=== PATIENT | male | born 1995 | race Caucasian/White ===

== ENCOUNTER 2016-12-14 17:48 | Emergency (ER) | payer BC ==
[~2016-12-14] VITALS: Ht 162.6 cm; Wt 67.0 kg
[~2016-12-14 17:48] MED LIST: AMO500 PO; NAPR-688 PO
[2016-12-14 18:18] VITALS: Ht 162.6 cm; Wt 67.0 kg
[2016-12-14] MEDS ORDERED: IBUP-1542 PO (19:31)
[2016-12-14] MEDS ORDERED: BACTDS PO (19:31)
[2016-12-14] MEDS ORDERED: CEPH-443 PO (19:31)
[2016-12-14 19:55] VITALS: PULSE 80
--- NOTE | 2016-12-14 20:37 | ERD ---
ER Documentation Chief Complaint Date/Time DATE: 12/14/16 TIME: 20:35 Chief Complaint r 1st toe redness and swelling x 1 month HPI Patient is a 20-year-old male with no medical problems who presents with a right first toe infection. The symptoms started 2 months ago but have been worse over the past 1 month. He had a piece of his toenail removed back in July for similar type problem. He has had no treatment as of yet. He has no fevers. Upon review of old medical records this is the patient's third visit to the ER since 2014. He does not know the name of his primary doctor. ROS All systems reviewed and are negative except as per history of present illness. Medications Home Meds Active Scripts Sulfamethoxazole-Trimethoprim* (Bactrim* DS) 800-160 Mg Tab, 1 TAB PO BID for 7 Days, TAB Prov:HENRIQUE DAILEY MD 12/14/16 Cephalexin* (Keflex*) 500 Mg Capsule, 500 MG PO QID for 7 Days, CAP Prov:HENRIQUE DAILEY MD 12/14/16 Ibuprofen* (Motrin*) 600 Mg Tab, 600 MG PO Q6H Y for PAIN AND OR ELEVATED TEMP, #30 TAB Prov:HENRIQUE DAILEY MD 12/14/16 Naproxen* (Naproxen*) 500 Mg Tablet, 500 MG PO BID Y for PAIN for 7 Days, TAB Prov:MANAGUELOD,RAMÓN P REED WORKER 07/09/16 Amoxicillin* (Amoxicillin*) 500 Mg Cap, 500 MG PO TID for 7 Days, CAP Prov:MANAGUELOD,RAMÓN P REED WORKER 07/09/16 Allergies Allergies: Coded Allergies: No Known Allergy (Unverified , 12/18/14) PMhx/Soc Medical and Surgical Hx: pt denies Medical Hx, pt denies Surgical Hx History of Surgery: No Anesthesia Reaction: No Hx Neurological Disorder: No Hx Respiratory Disorders: No Hx Cardiac Disorders: No Hx Psychiatric Problems: No Hx Miscellaneous Medical Probl: No Hx Alcohol Use: No Hx Substance Use: No Hx Tobacco Use: No Smoking Status: Never smoker FmHx Family History: No diabetes Physical Exam Vitals Vital Signs Date Time Temp Pulse Resp B/P Pulse Ox O2 Delivery O2 Flow Rate FiO2 12/14/16 19:55 80 99 Room Air 12/14/16 18:18 98.3 68 18 128/69 98 Physical Exam Const: No acute distress Head: Atraumatic Eyes: Normal Conjunctiva ENT: Normal External Ears, Nose and Mouth. Neck: Full range of motion..~ No meningismus. Resp: Clear to auscultation bilaterally Cardio: Regular rate and rhythm, no murmurs Abd: Soft, non tender, non distended. Normal bowel sounds Skin: Inflammation of the right first toe of the lateral portion where the toenail was removed previously, surrounding erythema without pus Back: No midline or flank tenderness Ext: No cyanosis, or edema Neur: Awake and alert Psych: Normal Mood and Affect Procedures/MDM Patient is a 20-year-old male presents with what appears to be inflammation and ingrown infected toenail. I believe the patient will require Bactrim and Keflex as well as ibuprofen for pain. I think salt soaks would be helpful. The patient will need to follow-up closely with Dr. Joshi from podiatry for further evaluation. The patient can return sooner for any worsening symptoms. Departure Diagnosis: Primary Impression: Toe infection Additional Impression: Pain of toe Laterality: right Qualified Code: M79.674 - Pain of toe of right foot Condition: Fair Patient Instructions: Ingrown Toenail, Infected (Abx Only) Referrals: YAYA JOSHI DPM Additional Instructions: Call your primary care doctor TOMORROW for an appointment during the next 1-2 days.See the doctor sooner or return here if your condition worsens before your appointment time. HENRIQUE DAILEY MD Dec 14, 2016 20:37
== END 2016-12-14 19:55 | disposition home or self-care (01) ==
LOC: FTE 17:48
DX: L08.89 Other specified local infections of the skin and subcutaneous tissue (principal); M79.674 Pain in right toe(s)
CPT/HCPCS: 99284

== ENCOUNTER 2016-12-18 15:48 | Emergency (ER) | payer BC ==
[~2016-12-18] VITALS: Wt 65.0 kg
[~2016-12-18 15:48] MED LIST changes: +BACTDS PO; +CEPH-443 PO; +IBUP-1542 PO
[2016-12-18] MEDS ORDERED: LIDOCAINE 1% (MDV) 20 ML INJ SC ONE (19:00)
--- NOTE | 2016-12-18 19:19 | ERD ---
ER Documentation Chief Complaint Date/Time DATE: 12/18/16 TIME: 19:05 Chief Complaint RIGHT GREAT TOE PAIN FROM A INGROWN NAIL FOR 2 MONTHS. NO FEVERS HPI 20-year-old male comes in with right medial great toe ingrown nail for the past 2 months. He denies that he has tried soaking it in Epsom salts, without any relief. No fevers or chills. Denies trauma. Denies history of diabetes mellitus per ROS All systems reviewed and are negative except as per history of present illness. Medications Home Meds Active Scripts Bacitracin* (Bacitracin Zinc Oint*) 28.35 Gm Oint, 1 APPLIC TOP BID, #1 TUB APPLI TO Prov:GUY MALONEY PA-C 12/18/16 Naproxen* (Naprosyn*) 500 Mg Tablet, 500 MG PO BID Y for PAIN AND/OR INFLAMMATION, #30 TAB Prov:GUY MALONEY PA-C 12/18/16 Cephalexin* (Keflex*) 500 Mg Capsule, 500 MG PO QID for 7 Days, CAP Prov:GUY MALONEY PA-C 12/18/16 Sulfamethoxazole-Trimethoprim* (Bactrim* DS) 800-160 Mg Tab, 1 TAB PO BID for 7 Days, TAB Prov:HENRIQUE DAILEY MD 12/14/16 Cephalexin* (Keflex*) 500 Mg Capsule, 500 MG PO QID for 7 Days, CAP Prov:HENRIQUE DAILEY MD 12/14/16 Ibuprofen* (Motrin*) 600 Mg Tab, 600 MG PO Q6H Y for PAIN AND OR ELEVATED TEMP, #30 TAB Prov:HENRIQUE DAILEY MD 12/14/16 Naproxen* (Naproxen*) 500 Mg Tablet, 500 MG PO BID Y for PAIN for 7 Days, TAB Prov:MANAGUELOD,ARMÓN P RADAR AIR TRAFFIC CONTROLLER 07/09/16 Amoxicillin* (Amoxicillin*) 500 Mg Cap, 500 MG PO TID for 7 Days, CAP Prov:MANAGUELOD,RAMÓN P [employer]AR [employer] TRAFFIC CONTROLLER 07/09/16 Allergies Allergies: Coded Allergies: No Known Allergy (Unverified , 12/18/14) PMhx/Soc History of Surgery: No Anesthesia Reaction: No Hx Neurological Disorder: No Hx Respiratory Disorders: No Hx Cardiac Disorders: No Hx Psychiatric Problems: No Hx Miscellaneous Medical Probl: No Hx Alcohol Use: No Hx Substance Use: No Hx Tobacco Use: No Physical Exam Vitals Vital Signs Date Time Temp Pulse Resp B/P Pulse Ox O2 Delivery O2 Flow Rate FiO2 12/18/16 15:56 98.5 98 20 135/88 98 Physical Exam General: Well-developed, well-nourished. The patient appears in no acute distress. HEENT: Head is normocephalic, atraumatic. No scleral icterus. Neck: Supple. Nontender. Lungs: Clear to auscultation. Normal air movement. Heart: Regular rate and rhythm. S1 and S2 are normal. No murmurs, gallops, or rubs. Abdomen: Nondistended. Extremities: No clubbing or cyanosis. Moving extremities x 4. No weakness. Neurologic: Alert and oriented 3. No focal deficits. Normal speech and gait. Skin: There is overgrowth of skin just lateral to the right great toe medial aspect. There is ingrown toenail as well. Results 24 hrs Current Medications Medications (Trade) Dose Ordered Sig/Enrrique Route PRN Reason Start Time Stop Time Status Last Admin Dose Admin Lidocaine (Xylocaine 1% (Mdv) 20 ml) 20 ml ONCE ONCE SC 12/18/16 19:00 12/18/16 19:01 DC Procedures/MDM Procedure: Ingrown Toenail removal: patient was verbally consented. Patient's right right great toe was prepped with Betadine. Digital block was done with lidocaine 1% without epinephrine, approximately 7 cc. Patient had good local anesthetic effect achieved. Foreceps were used to lift the nailbed, as well as scissors to cut just distal to the cuticle. Hemostat was used, was clamped onto the toenail, and flipped for removal. It was minor bleeding, hemostasis was achieved. Patient was neurovascularly intact postprocedure. Clean dressing was applied, patient was placed in a postop shoe. Departure Diagnosis: Primary Impression: Ingrowing nail, right great toe Condition: GUY Marcus PA-C Dec 18, 2016 19:19
[2016-12-18] MEDS ORDERED: NAPR-260 PO (19:23)
[2016-12-18] MEDS ORDERED: BAC30OI TOP (19:23)
[2016-12-18] MEDS ORDERED: CEPH-443 PO (19:23)
[2016-12-18 20:12] VITALS: BP 127/78; PULSE 67; RESP 20; TEMP 98.2
== END 2016-12-18 20:12 | disposition home or self-care (01) ==
LOC: FTE 15:48
DX: L60.0 Ingrowing nail (principal)
CPT/HCPCS: 11765; Z7502; Z7610

== ENCOUNTER 2017-05-10 00:33 | Emergency (ER) | payer BC ==
[~2017-05-10] VITALS: Wt 65.0 kg
[~2017-05-10 00:33] MED LIST changes: +BACI28.34 TOP; +NAPR-260 PO
[2017-05-10] MEDS ORDERED: HYDROmorphONE 1 MG/ML SYG IM STA (00:53)
--- NOTE | 2017-05-10 01:49 | ERD ---
ER Documentation Chief Complaint Date/Time DATE: 05/10/17 TIME: 01:49 Chief Complaint Left Shoulder pain possible dislocation HPI 21-year-old male with a history of multiple left shoulder dislocations presenting with left shoulder pain. He states he was getting out of bed and made a wrong move and felt his shoulder pop out of place. He denies any associated paresthesias. He complains of 10 out of 10 pain. No other symptoms. ROS All systems reviewed and are negative except as per history of present illness. Medications Home Meds Active Scripts Bacitracin* (Bacitracin Zinc Oint*) 28.35 Gm Oint, 1 APPLIC TOP BID, #1 TUB APPLI TO Prov:GUY MALONEY PA-C 12/18/16 Naproxen* (Naprosyn*) 500 Mg Tablet, 500 MG PO BID Y for PAIN AND/OR INFLAMMATION, #30 TAB Prov:GUY MALONEY PA-C 12/18/16 Cephalexin* (Keflex*) 500 Mg Capsule, 500 MG PO QID for 7 Days, CAP Prov:GUY MALONEY PA-C 12/18/16 Sulfamethoxazole-Trimethoprim* (Bactrim* DS) 800-160 Mg Tab, 1 TAB PO BID for 7 Days, TAB Prov:HENRIQUE DAILEY MD 12/14/16 Cephalexin* (Keflex*) 500 Mg Capsule, 500 MG PO QID for 7 Days, CAP Prov:HENRIQUE DAILEY MD 12/14/16 Ibuprofen* (Motrin*) 600 Mg Tab, 600 MG PO Q6H Y for PAIN AND OR ELEVATED TEMP, #30 TAB Prov:HENRIQUE DAILEY MD 12/14/16 Naproxen* (Naproxen*) 500 Mg Tablet, 500 MG PO BID Y for PAIN for 7 Days, TAB Prov:MANAGETHELOD,RAMÓN P MANAGER TECHNICAL TRAINING 07/09/16 Amoxicillin* (Amoxicillin*) 500 Mg Cap, 500 MG PO TID for 7 Days, CAP Prov:MANAGUELOD,RAMÓN P MANAGER TECHNICAL TRAINING 07/09/16 Allergies Allergies: Coded Allergies: No Known Allergy (Unverified , 12/18/14) PMhx/Soc Medical and Surgical Hx: pt denies Medical Hx, pt denies Surgical Hx History of Surgery: No Anesthesia Reaction: No Hx Neurological Disorder: No Hx Respiratory Disorders: No Hx Cardiac Disorders: No Hx Psychiatric Problems: No Hx Miscellaneous Medical Probl: Yes (Left shoulder dislocations) Hx Alcohol Use: No Hx Substance Use: No Hx Tobacco Use: No Smoking Status: Never smoker FmHx Family History: No diabetes Physical Exam Vitals Vital Signs Date Time Temp Pulse Resp B/P Pulse Ox O2 Delivery O2 Flow Rate FiO2 05/10/17 02:17 98.4 82 24 119/78 98 Room Air 05/10/17 00:36 98.4 85 24 125/70 98 Physical Exam Const: In distress secondary to pain, nontoxic Head: Atraumatic Resp: No respiratory distress Ext: No cyanosis, or edema. Left shoulder with sulcus sign noted. No deformities. 2+ distal radial pulses bilaterally. Sensations intact distally. Full range of motion at elbow and wrist. Neur: Awake and alert Psych: Normal Mood and Affect Results 24 hrs Current Medications Medications (Trade) Dose Ordered Sig/Enrrique Route PRN Reason Start Time Stop Time Status Last Admin Dose Admin Hydromorphone HCl (Dilaudid) 1 mg ONCE STAT IM 05/10/17 00:53 05/10/17 00:55 DC 05/10/17 01:00 Procedures/MDM Patient was given 1 dose of IM Dilaudid with good pain relief. Shoulder Reduction by me: Anesthesia: IM Dilaudid Location: Left shoulder Technique: Scapular manipulation, Results: Yazidism of normal anatomic positioning Compl: Neurovascularly intact post procedure. Sling Assessment: Neurovascularly intact post sling placement with good fit. Post-reduction X-ray Shoulder 3V Interpreted by me: Bones: No acute abnormalities Joints: Relocation of previously noted dislocation Foreign body: None I discussed the importance of follow-up with an orthopedist given his recurrent dislocations. Patient is agreeable to plan. Return precautions given Departure Diagnosis: Primary Impression: Recurrent dislocation, left shoulder Condition: Stable SAKSHI MCKINNEY MD May 10, 2017 01:49
[2017-05-10 02:17] VITALS: BP 119/78; PULSE 82; RESP 24; TEMP 98.4
--- NOTE | 2017-05-10 02:56 | RADRPT ---
PROCEDURE: X-ray left shoulder. CLINICAL INDICATION: The patient is status post reduction TECHNIQUE: 2 views left shoulder COMPARISON: Left shoulder plain film series dated 12/18/2014 FINDINGS: No acute fracture or dislocation. Soft tissues unremarkable. IMPRESSION: No acute fracture. RPTAT: [facility] Physician [facility] Date Time Electronically viewed and signed by Cristian Trimble Physician on 05/10/2017 02:55 RS/
== END 2017-05-10 02:18 | disposition home or self-care (01) ==
LOC: E/R 00:33
DX: S43.005A Unspecified dislocation of left shoulder joint, initial encounter (principal); X50.9XXA Other and unspecified overexertion or strenuous movements or postures, initial encounter; Y92.9 Unspecified place or not applicable
CPT/HCPCS: 23650; 73030; 96372; J1170; Z7502

== ENCOUNTER 2018-01-19 14:40 | Emergency (ER) | END 2018-01-19 17:10 | disposition home or self-care (01) ==

== ENCOUNTER 2018-01-20 21:47 | Emergency (ER) | END 2018-01-21 03:52 | disposition home or self-care (01) ==

== ENCOUNTER 2018-04-30 12:54 | Emergency (ER) | END 2018-04-30 16:18 | disposition home or self-care (01) ==

== ENCOUNTER 2018-06-21 00:53 | Emergency (ER) | END 2018-06-21 03:49 | disposition home or self-care (01) ==

== ENCOUNTER 2018-07-22 06:43 | Emergency (ER) | END 2018-07-22 09:50 | disposition home or self-care (01) ==

== ENCOUNTER 2018-11-24 11:29 | Emergency (ER) | payer SELFPAY ==
[~2018-11-24] VITALS: Ht 160 cm; Wt 57.8 kg
[2018-11-24 11:37] VITALS: Ht 160 cm; Wt 57.8 kg
[2018-11-24] MEDS ORDERED: PROPOFOL 200 MG INJ IV STA (11:56)
[2018-11-24] MEDS ORDERED: KETOROLAC 30 MG INJ IV STA (11:56)
[2018-11-24] MEDS ORDERED: IBUP-1542 PO (13:10)
[2018-11-24 13:26] VITALS: BP 108/50; PULSE 94; RESP 16
--- NOTE | 2018-11-24 14:12 | ERD ---
ER Documentation Chief Complaint Chief Complaint lt shoulder dislocation HPI Patient is a 22-year-old male with frequent shoulder dislocation who presents with a shoulder dislocation. He said that he woke up this morning and pushed to get himself out of bed and felt a pop in his left shoulder dislocated. He has 10 out of 10 pain. He has had no treatment as of yet. This is similar to the way it has happened in the past. ROS All systems reviewed and are negative except as per history of present illness. Medications Home Meds Active Scripts Ibuprofen* (Motrin*) 600 Mg Tab, 600 MG PO Q6H PRN for PAIN AND OR ELEVATED TEMP, #30 TAB Prov:HENRIQUE DAILEY MD 11/24/18 Allergies Allergies: Coded Allergies: No Known Allergy (Unverified , 01/19/18) PMhx/Soc History of Surgery: No Anesthesia Reaction: No Hx Neurological Disorder: No Hx Respiratory Disorders: No Hx Cardiac Disorders: No Hx Psychiatric Problems: No Hx Miscellaneous Medical Probl: Yes (Multiple left shoulder dislocations) Hx Alcohol Use: No Hx Substance Use: Yes (MARIJUANA) Hx Tobacco Use: No Smoking Status: Former smoker FmHx Family History: No diabetes Physical Exam Vitals Vital Signs Date Temp Pulse Resp B/P (MAP) Pulse Ox O2 O2 Flow FiO2 Time Delivery Rate 11/24/18 98.2 94 16 108/50 99 Room Air 13:26 (69) 11/24/18 4.0 12:35 11/24/18 98.0 71 18 117/73 97 11:37 (88) Physical Exam Const: No acute distress Head: Atraumatic Eyes: Normal Conjunctiva ENT: Normal External Ears, Nose and Mouth. Neck: Full range of motion. No meningismus. Resp: Clear to auscultation bilaterally Cardio: Regular rate and rhythm, no murmurs Abd: Soft, non tender, non distended. Normal bowel sounds Skin: No petechiae or rashes Back: No midline or flank tenderness Ext: Left shoulder dislocation Neur: Awake and alert Psych: Normal Mood and Affect Results 24 hrs Current Medications Medications Dose Sig/Enrrique Start Time Status Last (Trade) Ordered Route PRN Stop Time Admin Dose Reason Admin Ketorolac 30 mg ONCE STAT 11/24/18 DC 11/24/18 Tromethamine IV 11:56 12:10 (Toradol) 11/24/18 11:57 Propofol 200 mg ONCE STAT 11/24/18 DC 11/24/18 (Diprivan) IV 11:56 12:40 11/24/18 11:57 Procedures/MDM X-ray Shoulder 3V Interpreted by me: Bones: No fracture Joints: Anterior dislocation of the glenohumeral joint Foreign body: None Procedural Sedation: Pre-assessment performed. See preceding complete history and physical for details. Time out performed. See sedation documentation for details. Medication(s): Propofol Complications: No hypoxic or apneic events Recovered without incident. Greater than 15 minutes of face to face time included in sedation and recovery. Shoulder Reduction by me: Anesthesia: Propofol 140 mg IV Location: Left shoulder Technique: Traction countertraction Results: Tenriism of normal anatomic positioning Compl: Neurovascularly intact post procedure. Splint Note Type: Shoulder immobilizer Location: Left upper extremity Indication: Shoulder dislocation Splint Assessment: Neurovascularly intact post splint placement with good fit. Post-reduction X-ray Shoulder 3V Interpreted by me: Bones: No fracture Joints: Relocation of previously noted dislocation Foreign body: None Patient was given information for Dr. Siddiqui and should follow-up with orthopedic surgery within 1 week. Departure Diagnosis: Primary Impression: Recurrent dislocation, left shoulder Condition: Fair Patient Instructions: Dislocation, Other Joint Referrals: MICHAEL SIDDIQUI MD Additional Instructions: SPECIALIST: YOU HAVE A MEDICAL CONDITION WHICH REQUIRES YOU TO SEE A S PECIALIST WITHIN THE NEXT 1-2 DAYS. PLEASE FOLLOW UP WITH YOUR PRIMARY PHYSICIAN FOR REFFERAL.IF YOU DO NOT HAVE A PRIMARY CARE PHYSICIAN AND/OR YOU CAN NOT AFFORD TO SEE A PHYSICIAN THE FOLLOWING RESOURCES HAVE BEEN SUPPLIED TO YOU. IT IS YOUR RESPONSIBILITY TO BE SEEN BY THE SPECIALIST HENRIQUE DAILEY MD Nov 24, 2018 14:12
== END 2018-11-24 14:05 | disposition home or self-care (01) ==
LOC: E/R 11:29
DX: M24.412 Recurrent dislocation, left shoulder (principal); Z87.891 Personal history of nicotine dependence
CPT/HCPCS: 23655; 73030; 96374; 99285; J1885

== ENCOUNTER 2018-11-28 09:16 | Emergency (ER) | payer SELFPAY ==
[~2018-11-28] VITALS: Ht 162.6 cm; Wt 59.8 kg
[~2018-11-28 09:16] MED LIST changes: -AMO500 PO; -BACI28.34 TOP; -BACTDS PO; -CEPH-443 PO; -NAPR-260 PO; -NAPR-688 PO
[2018-11-28 09:54] VITALS: BP 178/90; PULSE 119; RESP 20; Ht 162.6 cm; Wt 59.8 kg
[2018-11-28] MEDS ORDERED: morphine 4 MG/ML VIAL IV STA (10:20)
[2018-11-28] MEDS ORDERED: ONDANSETRON 4 MG INJ IV STA (10:20)
[2018-11-28] MEDS ORDERED: SOD CHLORIDE 0.9% 1,000 ML IV STA (10:20)
[2018-11-28] MEDS ORDERED: PROPOFOL 200 MG INJ IV ONE (11:30)
--- NOTE | 2018-11-28 12:21 | ERD ---
ER Documentation Chief Complaint Chief Complaint DISLOCATED LEFT SHOULDER S/P WRONG MOVEMENT; HX OF SAME HPI This is a 22-year-old male with a history of a frequent left shoulder dislocatio ns who presents to the emergency room for evaluation of left shoulder pain. The patient was seen here 2 days ago and had a dislocation reduced. He states that today he was working and he moved something heavy and felt her shoulder pop. He states that he does feel that it is dislocated again. He denies any numbness or tingling in his hand or extremity and came to the ER for evaluation. He describes his pain as a sharp pain worse with any movement of the left shoulder. ROS All systems reviewed and are negative except as per history of present illness. Medications Home Meds Active Scripts Ibuprofen* (Motrin*) 600 Mg Tab, 600 MG PO Q6H PRN for PAIN AND OR ELEVATED TEMP, #30 TAB Prov:HENRIQUE DAILEY MD 11/24/18 Allergies Allergies: Coded Allergies: No Known Allergy (Unverified , 11/28/18) PMhx/Soc History of Surgery: No Anesthesia Reaction: No Hx Neurological Disorder: No Hx Respiratory Disorders: No Hx Cardiac Disorders: No Hx Psychiatric Problems: No Hx Miscellaneous Medical Probl: Yes (Multiple left shoulder dislocations) Hx Alcohol Use: No Hx Substance Use: Yes (MARIJUANA) Hx Tobacco Use: No Smoking Status: Current every day smoker Physical Exam Vitals Vital Signs Date Temp Pulse Resp B/P (MAP) Pulse Ox O2 O2 Flow FiO2 Time Delivery Rate 11/28/18 4.0 12:13 11/28/18 98.7 119 20 178/90 97 09:54 (119) Physical Exam INITIAL VITAL SIGNS: Reviewed by me GENERAL: The patient is well developed and appropriate for usual state of health in no apparent distress HEENT: Pupils equal, round, and reactive to light. EOMI. There is no scleral icterus. NECK: C-spine is soft and supple, there is no meningismus. There is no cervical lymphadenopathy. LUNGS: Clear to auscultation bilaterally. There are no rales, wheezes or rhonchi. HEART: Regular rate and rhythm, no murmurs, clicks, rubs or gallops. ABDOMEN: Soft, non-tender, non-distended. There are bowel sounds in all four quadrants. No rebound or guarding. EXTREMITIES: Visible deformity noted at the left glenohumeral joint, sensation is intact over the region of the deltoid, there is no peripheral cyanosis or edema. No focal swelling or erythema. NEUROLOGICAL: The patient moves all four extremities with 5/5 strength. Cranial nerves II - XII are intact. Normal gait. Alert and oriented SKIN: There is no apparent rash or petechiae. HEME/LYMPHATIC: There is no evidence of excessive bruising or lymphedema. PSYCHIATRIC: The patient does not appear anxious or depressed. Results 24 hrs Current Medications Medications Dose Sig/Enrrique Start Time Status Last (Trade) Ordered Route PRN Stop Time Admin Dose Reason Admin Morphine 4 mg ONCE STAT 11/28/18 DC 11/28/18 Sulfate IV 10:20 10:57 (morphine) 11/28/18 10:22 Ondansetron 4 mg ONCE STAT 11/28/18 DC 11/28/18 HCl (Zofran IV 10:20 10:57 Inj) 11/28/18 10:22 Sodium 1,000 ml @ Q1H STAT 11/28/18 DC 11/28/18 Chloride 1,000 mls/hr IV 10:20 10:57 11/28/18 11:19 Propofol 100 mg ONCE ONCE 11/28/18 DC (Diprivan) IV 11:30 11/28/18 11:31 Procedures/MDM X-ray Shoulder 3V Interpreted by me: Bones: [No fracture] Joints: Anterior dislocation Foreign body: [None] Procedural Sedation: Pre-assessment performed. See preceding complete history and physical for details. Time out performed. See sedation documentation for details. Medication(s): 100 mg propofol Complications: No hypoxic or apneic events Recovered without incident. Greater than 15 minutes of face to face time included in sedation and recovery. Reduction by me: Anesthesia: 100 mg propofol Location: Left glenohumeral joint Technique: Gentle traction and manipulation Results: Taoism of normal anatomic positioning Neurovascularly intact post procedure. [Splint Assessment: Neurovascularly intact post splint placement with good fit.] X-ray Shoulder 3V Interpreted by me: Bones: [No fracture] Joints: [No dislocation] Foreign body: [None] This 22-year-old male presents to the ER for evaluation of recurrent left shoulder dislocation. On my exam the patient did have a visible deformity and x-ray was obtained which confirmed anterior shoulder dislocation. Patient was given propofol, and he was able to reduce the patient's shoulder. Please see procedure note. The patient was placed in a left shoulder immobilizer and will be discharged home with a prescription for Motrin, and [place] for breakthrough pain. He was given a orthopedic referral when he was here 2 days ago and I reiterated that he needs to follow-up with orthopedic surgeon for he is cleared for work and he verbalized understanding. Departure Diagnosis: Primary Impression: Recurrent dislocation, left shoulder Additional Impressions: Shoulder pain Shoulder injury Condition: Fair AJAY GARCIA DO Nov 28, 2018 12:21
[2018-11-28] MEDS ORDERED: IBUP800T48 PO (12:22)
[2018-11-28] MEDS ORDERED: HYDR-4011 PO (12:22)
== END 2018-11-28 13:29 | disposition home or self-care (01) ==
LOC: E/R 09:16
DX: S43.015A Anterior dislocation of left humerus, initial encounter (principal); F17.210 Nicotine dependence, cigarettes, uncomplicated; X50.0XXA Overexertion from strenuous movement or load, initial encounter; Y92.9 Unspecified place or not applicable
CPT/HCPCS: 23650; 73030; 96374; 96375; 99285; J2270; J2405; J7030

== ENCOUNTER 2019-03-25 05:41 | Emergency (ER) | payer SELFPAY ==
[~2019-03-25] VITALS: Ht 162.6 cm; Wt 59.1 kg
[~2019-03-25 05:41] MED LIST changes: +HYDR-4011 PO; +IBUP800T48 PO
[2019-03-25 05:56] VITALS: Ht 162.6 cm; Wt 59.1 kg
[2019-03-25] MEDS ORDERED: morphine 4 MG/ML VIAL IV STA (06:05)
[2019-03-25] MEDS ORDERED: SOD CHLORIDE 0.9% 1,000 ML IV STA (06:05)
[2019-03-25] MEDS ORDERED: PROPOFOL 200 MG INJ IV STA (06:05)
[2019-03-25] MEDS ORDERED: ONDANSETRON 4 MG INJ IV STA (06:05)
--- NOTE | 2019-03-25 07:16 | ERD ---
ER Documentation Chief Complaint Chief Complaint LEFT SHOULDER DISLOCATION HPI This is a 23-year-old male that presented to the emergency department with a left shoulder dislocation. 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 The patient indicated this occurred while stretching this morning. He is right-handed dominant. He denies any numbness or tingling of his left shoulder. ROS All systems reviewed and are negative except as per history of present illness. Medications Home Meds Active Scripts Hydrocodone/Acetaminophen ([place] 5-325 Tablet) 1 Each Tablet, 1 TAB PO Q6H PRN for PAIN, #8 TAB Prov:AJAY GARCIA DO 11/28/18 Ibuprofen* (Motrin*) 800 Mg Tab, 800 MG PO Q6H PRN for PAIN AND OR ELEVATED TEMP, #30 TAB Prov:AJAY GARCIA DO 11/28/18 Ibuprofen* (Motrin*) 600 Mg Tab, 600 MG PO Q6H PRN for PAIN AND OR ELEVATED TEMP, #30 TAB Prov:HENRIQUE DAILEY MD 11/24/18 Allergies Allergies: Coded Allergies: No Known Allergy (Unverified , 11/28/18) PMhx/Soc History of Surgery: No Anesthesia Reaction: No Hx Neurological Disorder: No Hx Respiratory Disorders: No Hx Cardiac Disorders: No Hx Psychiatric Problems: No Hx Miscellaneous Medical Probl: Yes (Multiple left shoulder dislocations) Hx Alcohol Use: No Hx Substance Use: Yes (MARIJUANA) Hx Tobacco Use: No Physical Exam Vitals Vital Signs Date Temp Pulse Resp B/P (MAP) Pulse Ox O2 O2 Flow FiO2 Time Delivery Rate 03/25/19 98.3 80 16 122/87 100 Room Air 08:15 (99) 03/25/19 98.2 72 18 117/76 100 Room Air 07:36 (90) 03/25/19 3.0 07:18 03/25/19 97.9 115 19 139/55 99 05:56 (83) Physical Exam Constitutional:Well-developed. Well-nourished. Respiratory: Not using accessory muscles of respiration.Lungs were clear to auscultation bilaterally. No rhonchi. No rales. No wheezing. Cardiovascular: Regular rate regular rhythm.No murmurs. No rubs were appreciated.S1, S2 normal. Distal pulses are palpable 2+ bilaterally. Muscle skeletal: Abnormal lie to the left humeral head. Tenderness with attempted abduction of the left upper extremity which was not possible due to pain. Patient was able to flex extend at the left elbow. Skin: No petechia, no purpura. No lesions on the palms or the soles of the feet. No maculopapular rash. NEURO: Patient was alert, awake, orientated x3.No facial droop. Gait observed and normal with no ataxia.Speech had regular rate and rhythm. Sensation intact over the radial ulnar and median nerve dissipation as well as the axillary nerve of the left upper extremity. Results 24 hrs Current Medications Medications Dose Sig/Enrrique Start Time Status Last (Trade) Ordered Route PRN Stop Time Admin Dose Reason Admin Sodium 1,000 ml @ Q1H STAT 03/25/19 DC 03/25/19 Chloride 1,000 mls/hr IV 06:05 06:18 03/25/19 07:04 Morphine 4 mg ONCE STAT 03/25/19 DC 03/25/19 Sulfate IV 06:05 06:18 (morphine) 03/25/19 06:09 Ondansetron 4 mg ONCE STAT 03/25/19 DC 03/25/19 HCl (Zofran IV 06:05 06:18 Inj) 03/25/19 06:09 Propofol 100 mg ONCE STAT 03/25/19 DC 03/25/19 (Diprivan) IV 06:05 07:21 03/25/19 06:09 Propofol 50 mg ONCE ONCE 03/25/19 DC 03/25/19 (Diprivan) IV 08:30 08:12 03/25/19 08:31 Procedures/MDM This is a 23-year-old male that presented to the emergency department with left anterior shoulder dislocation confirmed on two-view radiograph of the left shoulder that was ordered reviewed by myself. Patient was admitted placed on a monitoring tech and IV access was established. The patient was given intravenous morphine and Zofran for analgesia control. The patient consented to procedural sedation. Procedural Sedation: Pre-assessment performed. See preceding complete history and physical for details. Time out performed. See sedation documentation for details. Patient has an ASA score of 1 Medication(s): 150 mg of propofol Complications: No hypoxic or apneic events Recovered without incident. Greater than 15 minutes of face to face time included in sedation and recovery. The procedure used included scapular manipulation with traction countertraction. Post radiograph of the left shoulder indicated that the shoulder had been succe ssfully reduced with evidence of a Hill-Sachs deformity. The patient was placed in a shoulder immobilizer. The patient was neurovascularly intact. The patient was discharged home in fair condition. They were instructed to return to the emergency department at any time if there was any worsening of their condition. The patient stated they would follow up with their PCP in the next 24-48 hours to initiate a suitable medication regimen under the care of their PCP as well as to allow their PCP to monitor any drug reactions. The patient was discharged home with prescriptions after they gave informed consent to the new medication. They were also fully informed by myself on the adverse effects and adverse drug interactions in order to provide adequate safeguards to prevent possible adverse reactions to medications. Critical Care: Time: 65 minutes Treatments/Evaluations: Close monitoring and treatment of unstable vital signs, cardiorespiratory, and neurologic status, while maintaining tight balance of fluid, respiratory, and cardiac interventions. Time does not include performing any of the above billable procedures. 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
[2019-03-25 08:15] VITALS: BP 122/87; PULSE 80; RESP 16
[2019-03-25] MEDS ORDERED: PROPOFOL 200 MG INJ IV ONE (08:30)
== END 2019-03-25 08:20 | disposition home or self-care (01) ==
LOC: E/R 05:41
DX: M24.412 Recurrent dislocation, left shoulder (principal); S42.202A Unspecified fracture of upper end of left humerus, initial encounter for closed fracture; X58.XXXA Exposure to other specified factors, initial encounter; Y92.9 Unspecified place or not applicable
CPT/HCPCS: 23650; 73030; 96361; 96374; 96375; 99285; J2270; J7030